=== PATIENT | female | born 1995 | race Caucasian/White ===

== ENCOUNTER 2019-07-07 12:22 | Day surgery (SDC) | payer OTHER, SELFPAY ==
[2019-07-07] VITALS (10 sets, daily range): BP systolic 90–131; BP diastolic 50–84; PULSE 52–115; RESP 12–18; TEMP 36.3–37.1; O2SAT 97–100
--- NOTE | ~2019-07-07 | CT_ITS ---
EXAMINATION: CT abdomen pelvis w con DATE: 07/07/2019 14:11 INDICATION: Right lower quadrant abdominal pain and cramping. TECHNIQUE: Computed tomography (CT) of the abdomen and pelvis was performed . with 100 mL Omnipaque-3 50 intravenous contrast. Automated exposure control and iterative reconstruction technique were emplo yed. The dose-length product was 260.97 mGy-cm. COMPARISON: None FINDINGS: Lung bases are clear. Heart size is normal. No pericardial or pleural effusion. Liver, gallbladder, s pleen, pancreas, bilateral adrenal glands and kidneys are normal. Obstructing calcified appendicolith at the base of the appendix which is fluid-filled and dilated to 1.6 cm with thickened edematous wal ls. There is mild periappendiceal inflammatory stranding. No abnormal bowel wall thickening or obstru ction. Ascites in the pelvis greater than typical for physiologic free fluid. No organized abscess or free intraperitoneal gas. Bladder, anteverted uterus and bilateral adnexa are unremarkable. No patho logically enlarged abdominal or pelvic lymphadenopathy. Bones are unremarkable. IMPRESSION: 1. Acute appendicitis. Dr. Alberts discussed these findings with Dr. Spann at 2:25 PM. 2. Greater than typical amount of free fluid in the pelvis which is likely reactive. No organized abs cess, evident defect in the appendiceal wall or intraperitoneal gas to suggest appendiceal rupture. Reviewed, dictated and finalized at location A. IMPRESSION: 1. Acute appendicitis. Dr. Alberts discussed these findings with Dr. Zana denton t 2:25 PM. 2. Greater than typical amount of free fluid in the pelvis which is likely reac tive. No organized abscess, evident defect in the appendiceal wall or intraperi toneal gas to suggest appendiceal rupture.
[2019-07-07 12:38] LABS: Basophils Absolute Auto 0.1 K/mm3 (0.0-0.1); Basophils Percent Auto 0.5 % (0.2-1.2); Eosinophils Absolute Auto 0.1 K/mm3 (0-0.3); Eosinophils Percent Auto 0.4 % (0-4.4); Hematocrit 38.2 % (37.0-47.0); Hemoglobin 12.8 g/dL (12.0-15.0); Immature Granulocyte Absolute 0.05 K/mm3 (0.00-0.031); Immature Granulocyte Percent A 0.4 % (0-0.5); Lymphocytes Absolute Auto 1.92 K/mm3 (0.9-3.2); Lymphocytes Percent Auto 13.6 % (18.3-44.2); Mean Corpuscular HGB Conc 33.5 g/dl (32-36); Mean Corpuscular Hemoglobin 29.8 pg (26-34); Mean Corpuscular Volume 88.8 fl (80-100); Mean Platelet Volume 10.7 fl (7.4-10.4); Monocytes Absolute Auto 0.6 K/mm3 (0.1-0.6); Monocytes Percent Auto 4.3 % (2.6-8.5); Neutrophils Absolute Auto 11.4 K/mm3 (1.3-6.7); Neutrophils Percent Auto 80.8 % (45.5-73.1); Platelet Count Result 290 k/mm3 (150-375); White Blood Count 14.1 K/mm3 (4.5-10.0)
[2019-07-07 12:51] LABS: Alanine Aminotransferase 11 U/L (4-35); Albumin Level 4.8 g/dL (3.5-5.1); Alkaline Phosphatase 66 U/L (38-126); Aspartate Amino Transferase 20 U/L (14-36); Bilirubin,Total 0.5 mg/dL (0.2-1.3); Blood Urea Nitrogen 10 mg/dL (7-17); Calcium 9.5 mg/dL (8.4-10.2); Carbon Dioxide 23 mmol/L (22-30); Chloride 106 mmol/L (98-107); Estimated CRCL calculation 82 ml/min; Estimated Glomerular Filt Rate > 60; Glucose 91 mg/dL (65-105); Lipase 30 U/L (23-300); Potassium 4.2 mmol/L (3.4-5.0); Sodium 137 mmol/L (137-145)
[2019-07-07] MEDS: MORPHINE SULFATE 4 MG/ML INJ IV PUSH (12:52)
[2019-07-07] MEDS: SODIUM CHLORIDE 0.9% IV 1,000 ML 999 ML IV CONT (12:53)
--- NOTE | 2019-07-07 13:26 | ED.ABDPAIN ---
HPI - Abdominal Pain General Chief Complaint: Abdominal Pain Stated Complaint: abdominal pain Time Seen by Provider: 07/07/19 12:34 History of Present Illness HPI narrative: Patient is a 23-year-old female who presents the ER with abdominal pain x3 days. Slowly progressing intensity. Began as cramping that she thought was related to her menstrual period that she is supposed to start in another 3 to 4 days. No fever/chills/sweats. She has been without any viral symptoms. No UTI symptoms. No affiliation with eating. Related Data Home Medications Medication Instructions Recorded Confirmed No Home Medications 07/07/19 07/07/19 Allergies Allergy/AdvReac Type Severity Reaction Status Date / Time peanut Allergy Difficulty Verified 07/07/19 12:31 Breathing Review of Systems Review of Systems: All systems reviewed & are unremarkable except as noted in HPI and below Constitutional: Constitutional: Denies chills, Denies fever(s) and Denies weakness ENT: Denies nasal congestion and Denies sore throat Respiratory: Respiratory: Denies cough and Denies dyspnea Gastrointestinal: Gastrointestinal: Reports abdominal pain, Denies diarrhea, Denies nausea and Denies vomiting Genitourinary: Genitourinary: Denies abnormal vaginal bleeding, Denies nocturia, Denies dysuria and Denies vaginal discharge PMF Past Medical History Medical History (Updated 07/07/19 @ 14:36 by Sanket Spann MD) No pertinent past medical history Surgical History Surgical History (Updated 07/07/19 @ 13:57 by Sanket Spann MD) No pertinent past surgical history Social History Social History (Updated 07/07/19 @ 13:58 by Sanket Spann MD) Smoking status: Never smoker Gender identity (if verbalized by the patient): Female Exam Narrative: Exam Narrative: GENERAL: Uncomfortable-appearing, well-nourished, and in no acute distress. HEAD: Normocephalic, atraumatic. ENT: Mucous membranes moist. CHEST: Clear to auscultation. No respiratory distress. HEART: Regular rate and rhythm. Normal peripheral pulses. ABDOMEN: Soft, moderately tender to palpation the right lower quadrant with guarding, positive Rovsing sign,, nondistended, normal active bowel sounds. EXTREMITIES: Normal range of motion. No edema. SKIN: Warm, dry, no rash. NEURO: N Alert and oriented x3. PSYCH: Normal mood and affect. Course Course Emergency Course: Discussed with Dr. Hargrove, pt will go to the OR. Zosyn given IV. Vital Signs Vital signs: Vital Signs Temperature 98.5 F 07/07/19 12:27 Pulse Rate 115 H 07/07/19 12:27 Respiratory Rate 18 07/07/19 12:27 Blood Pressure 131/76 07/07/19 12:27 Pulse Oximetry 100 07/07/19 12:27 Temperature 98.5 F 07/07/19 12:27 Pulse Rate 93 07/07/19 13:32 Respiratory Rate 16 07/07/19 13:32 Blood Pressure 117/62 07/07/19 13:32 Pulse Oximetry 100 07/07/19 13:32 MDM - Abdominal Pain Lab Data Result diagrams: 07/07/19 12:34 07/07/19 12:34 Labs: Lab Results 07/07/19 07/07/19 07/07/19 Range/Units 12:34 12:34 13:48 WBC 14.1 H (4.5-10.0) K/mm3 RBC 4.30 (4.2-5.4) M/mm3 Hgb 12.8 (12.0-15.0) g/dL Hct 38.2 (37.0-47.0) % MCV 88.8 (80-100) fl MCH 29.8 (26-34) pg MCHC 33.5 (32-36) g/dl RDW 12.0 (11.5-14.5) % Plt Count 290 (150-375) k/mm3 MPV 10.7 H (7.4-10.4) fl Immature Gran % (Auto) 0.4 (0-0.5) % Neut % (Auto) 80.8 H (45.5-73.1) % Lymph % (Auto) 13.6 L (18.3-44.2) % [place] % (Auto) 4.3 (2.6-8.5) % Eos % (Auto) 0.4 (0-4.4) % Baso % (Auto) 0.5 (0.2-1.2) % Lymph # (Auto) 1.92 (0.9-3.2) K/mm3 [place] # (Auto) 0.6 (0.1-0.6) K/mm3 Eos # (Auto) 0.1 (0-0.3) K/mm3 Baso # (Auto) 0.1 (0.0-0.1) K/mm3 Abs Immat Gran (auto) 0.05 H (0.00-0.031) K/mm3 Absolute Neuts (auto) 11.4 H (1.3-6.7) K/mm3 Absolute Nucleated RBC 0.0 (0.0-0.012) K/mm3 Nucleated RBC
[2019-07-07 13:58] LABS: Add Urine Microscopic? YES; Appearance Urine Clear (Clear); Bacteria Urine Trace /hpf; Bilirubin Urine Negative (Negative); Blood Urine Negative (Negative); Color Urine Straw (Yellow); Glucose Urine UA Negative (Negative); Ketones Urine 1+ mg/dL (Negative); Leukocyte Esterase Ur Negative LEU/UL (Negative); Mucus Urine Rare /lpf; Nitrate Urine Negative (Negative); Protein Urine Negative (Negative); Specific Grav Ur 1.013 (1.001-1.035); Squamous Epithelial Cell Urine Many /hpf (Few); Urobilinogen Urine Negative mg/dL (<2.0)
--- NOTE | 2019-07-07 15:13 | PM.IMHP ---
H&P: HPI History of Present Illness Chief complaint: abdominal pain Narrative: Lucia Ruelas is a 23 year old female patient who presented today the ER with abdominal pain x3 days. Slowly progressing in intensity. It began as cramping that she thought was related to her menstrual period that she is supposed to start in another 3 to 4 days. She has no current period symptoms nor any current UTI symptoms. No fever/chills/sweats. She has been without any viral symptoms. No UTI symptoms. No affiliation with eating. She last had something to eat last evening. She has had only water today. She has never had any previous abdominal surgery. Review of Systems Constitutional: Constitutional: Reports as per HPI and Denies headache(s) Eyes: Eyes: Denies loss of vision and Denies eye pain ENT: Reports Normal hearing present, Denies change in voice, Denies dizziness and Denies headache(s) Comments: Previous history of tonsillectomy as a child. Also has had dental surgery with wisdom teeth removed. Cardiovascular: Cardiovascular: Denies chest pain and Denies dyspnea Respiratory: Respiratory: Denies dyspnea and Denies wheezing Gastrointestinal: Gastrointestinal: Reports abdominal pain, Reports GI cramping, Denies diarrhea and Reports nausea (Mild) Comments: No previous history of abdominal gastrointestinal problems. Musculoskeletal: Musculoskeletal: Denies back pain and Denies arthralgias Neurologic: Reports Normal hearing present, Denies dizziness, Denies headache(s), Denies loss of vision and Denies memory loss Psychiatric: Psychiatric: Denies memory loss and Denies panic attacks Endocrine: Endocrine: Reports no additional endocrine complaints Hematologic/Lymphatic: Hematologic/Lymphatic: Reports no additional hematologic/lymphatic complaints Allergic/Immunologic: Allergic/Immunologic: Denies wheezing PMFSH Past Medical History Medical History (Updated 07/07/19 @ 14:36 by Sanket Spann MD) No pertinent past medical history Surgical History Surgical History (Updated 07/07/19 @ 13:57 by Sanket Spann MD) No pertinent past surgical history Social History Social History (Updated 07/07/19 @ 13:58 by Sanket Spann MD) Smoking status: Never smoker Gender identity (if verbalized by the patient): Female Meds Home Medications and Allergies Home Medications Medication Instructions Recorded Confirmed Type No Home Medications 07/07/19 07/07/19 History Allergies Allergy/AdvReac Type Severity Reaction Status Date / Time peanut Allergy Difficulty Verified 07/07/19 12:31 Breathing Vital Signs Vital Signs - 24 hr 07/07/19 12:27 07/07/19 13:32 Temperature 36.9 C Pulse Rate 115 H 93 Respiratory Rate 18 16 Blood Pressure 131/76 117/62 Pulse Oximetry 100 100 Exam Const: General: cooperative, no acute distress, alert and awake Orientation/consciousness: patient oriented x3 HENMT: Mouth: Yes moist mucous membranes Other: Has some ear rings. Neck: Neck: normal visual inspection Chest: Chest palpation & inspection: normal inspection of the chest Resp: Effort & Inspection: normal respiratory effort Auscultation: clear to auscultation bilaterally Cardio: Jugular venous distension: no JVD Rate: regular rate Rhythm: regular rhythm GI: Inspection: normal to inspection and no scars GI Palp: Yes Tenderness to palpation present (GI) (More in the right lower quadrant than left) and No Hernia present Auscultation: normal bowel sounds Rectal Exam: deferred Neuro: General: patient oriented x3 and moves all extremities Speech: normal speech Extrem: General: normal exam except as noted Psych: Mental Status: mental status grossly normal Speech and movement: Normal speech and movement present Affect: normal affect Thought content: Yes Normal thought content present H&P: Results Labs Labs: Short CBC 07/07/19 Range/Units 12:34 WBC 14.1 H (4.5-10.0) K/mm3
--- NOTE | 2019-07-07 15:22 | WPDANESEPPF ---
Anes - Initial Pre Proc Eval Procedure: Operation Date: 07/07/19 15:00 Proposed Procedures p Laparoscopic Appendectomy - Billy Hargrove MD Date/Time: 07/07/19 15:22 Surgeon: Billy Hargrove MD Pre Op Diagnosis: abdominal pain Patient Data Age: 23 Gender: F Height: 5 ft 4 in Weight: 60 kg Last Vital Signs Temp 36.9 C 07/07/19 12:27 Pulse 96 07/07/19 15:15 Resp 18 07/07/19 15:15 BP 118/84 07/07/19 15:15 Pulse Ox 99 07/07/19 15:15 Allergies Allergy/AdvReac Type Severity Reaction Status Date / Time peanut Allergy Difficulty Verified 07/07/19 12:31 Breathing Home Medications Medication Instructions Recorded Confirmed Type No Home Medications 07/07/19 07/07/19 History Laboratory Tests 07/07/19 07/07/19 07/07/19 12:34 12:34 13:48 WBC 14.1 K/mm3 H K/mm3 (4.5-10.0) RBC 4.30 M/mm3 M/mm3 (4.2-5.4) Hgb 12.8 g/dL g/dL (12.0-15.0) Hct 38.2 % % (37.0-47.0) MCV 88.8 fl fl (80-100) MCH 29.8 pg pg (26-34) MCHC 33.5 g/dl g/dl (32-36) RDW 12.0 % % (11.5-14.5) Plt Count 290 k/mm3 k/mm3 (150-375) MPV 10.7 fl H fl (7.4-10.4) Immature Gran % (Auto) 0.4 % % (0-0.5) Neut % (Auto) 80.8 % H % (45.5-73.1) Lymph % (Auto) 13.6 % L % (18.3-44.2) [place] % (Auto) 4.3 % % (2.6-8.5) Eos % (Auto) 0.4 % % (0-4.4) Baso % (Auto) 0.5 % % (0.2-1.2) Lymph # (Auto) 1.92 K/mm3 K/mm3 (0.9-3.2) [place] # (Auto) 0.6 K/mm3 K/mm3 (0.1-0.6) Eos # (Auto) 0.1 K/mm3 K/mm3 (0-0.3) Baso # (Auto) 0.1 K/mm3 K/mm3 (0.0-0.1) Abs Immat Gran (auto) 0.05 K/mm3 H K/mm3 (0.00-0.031) Absolute Neuts (auto) 11.4 K/mm3 H K/mm3 (1.3-6.7) Absolute Nucleated RBC 0.0 K/mm3 K/mm3 (0.0-0.012) Nucleated RBC % 0.0 % % (0.0-0.2) Sodium 137 mmol/L mmol/L (137-145) Potassium 4.2 mmol/L mmol/L (3.4-5.0) Chloride 106 mmol/L mmol/L (98-107) Carbon Dioxide 23 mmol/L mmol/L (22-30) BUN 10 mg/dL mg/dL (7-17) Creatinine 0.80 mg/dL mg/dL (0.7-1.0) Estim Creat Clear Calc 82 ml/min ml/min Estimated GFR > 60 (59 - ) Glucose 91 mg/dL mg/dL (65-105) Calcium 9.5 mg/dL mg/dL (8.4-10.2) Total Bilirubin 0.5 mg/dL mg/dL (0.2-1.3) AST 20 U/L U/L (14-36) ALT 11 U/L U/L (4-35) Alkaline Phosphatase 66 U/L U/L (38-126) Total Protein 8.0 g/dL g/dL (6.3-8.2) Albumin 4.8 g/dL g/dL (3.5-5.1) Lipase 30 U/L U/L (23-300) Urine Color Straw (Yellow) Urine Appearance Clear (Clear) Urine pH 6.0 (5.0-9.0) Ur Specific [place] 1.013 (1.001-1.035) Urine Protein Negative mg/dL mg/dL (Negative) Urine Glucose (UA) Negative mg/dL mg/dL (Negative) Urine Ketones 1+ mg/dL H mg/dL (Negative) Ur Blood (Man) Negative (Negative) Urine Nitrate Negative (Negative) Urine Bilirubin Negative (Negative) Urine Urobilinogen Negative mg/dL mg/dL (<2.0) Leukocyte Esterase Rfl Negative TONY/UL TONY/UL (Negative) Urine RBC 3-5 /hpf H /hpf (0-2) Urine WBC 4-6 /hpf H /hpf Ur Squamous Epith Cells Many /hpf H /hpf (Few) Urine Bacteria Trace /hpf /hpf Urine Mucus Rare /lpf /lpf Patient hx anesthesia problems: none Family hx anesthesia problems: none PMFSH Past Medical History Medical History No pertinent past medical history Surgical History Surgical History No pertinent past surgical history Social History
[2019-07-07] MEDS: LACTATED RINGERS 1,000 ML 30 ML IV CONT ×2 (15:25→16:35)
[2019-07-07] MEDS: BUPIVACAINE/EPINEPHRINE 0.5% 30 ML VIAL INFILTRATE (16:00)
--- NOTE | 2019-07-07 16:26 | PM.PROC ---
Procedure Note - Detailed Date of procedure: 07/07/19 Pre-op diagnosis: abdominal pain Acute uncomplicated appendicitis Post-op diagnosis: other (Acute uncomplicated appendicitis 2. enlarged left ovarian cyst) Procedure performed: Laparoscopic Appendectomy Description of procedure: The patient was seen again in the Emergency Room. The risks, benefits, complications, treatment options, and expected outcomes were discussed with the patient and/or family. The possibilities of reaction to medication, pulmonary aspiration, perforation of viscus, bleeding, recurrent infection, finding a normal appendix, the need for additional procedures, failure to diagnose a condition, and creating a complication requiring transfusion or operation were discussed. There was concurrence with the proposed plan and informed consent was obtained. The site of surgery was properly noted/marked. The patient was taken to Operating Room, and a time out was preformed which identified this as the proper patient, and the procedure verified as laparoscopic appendectomy, possible open. The patient was placed in the supine position and general anesthesia was induced, along with placement of orogastric tube, SCD hose, and a Mckenzie catheter. The abdomen was prepped and draped in a sterile fashion. A 5 mm umbilical incision was made and the peritoneal cavity was accessed using the Veress needle technique. Once the abdomen was insufflated to 14 mmHg pressure a 5 mm XL trocar over the 0? 5 mm scope was carefully twisted into the abdomen via the umbilicus. The pneumoperitoneum was then established to steady pressure of 14 mm Hg. A 12 mm laparoscopic port was placed through a transverse suprapubic incision. An additional 5 mm cannula was then placed in the left lower quadrant of the abdomen at a level half way between the umbilicus and pubic symphysis under direct vision. A careful evaluation of the entire abdomen was carried out. As noted on the CT scan there was some clear fluid in the pelvis and about 100 cc of serous fluid was aspirated away with a suction word processing specialist at this point. Upon doing this it appeared the bluish cyst was present. Further investigation revealed that this was the approximately 6 cm round ovarian cyst coming off the left ovary. 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 The patient was placed in Trendelenburg and left lateral decubitus position. The small intestines were retracted in the cephalad and left lateral direction away from the pelvis and right lower quadrant. The patient was found to have an enlarged and inflamed appendix that was extending [into the right side of the pelvis. There was no evidence of perforation. The appendix was carefully dissected. Once it was free a 45 mm ethicon endogastroentestinal stapler with a vascular load was placed across the mesoappendix. This was fired and hemostasis was checked along the staple line and appeared to be adequate. I did touch the staple line with a [place] connected to Bovie cautery a couple of times to achieve good hemostasis. For this patient, this divided the entire mesoappendix and we were able to proceed immediately to stapling off the appendix at it's junction with the cecum. The appendix was then divided at its base using the same 45 mm stapler with a 3.5 mm bowel wall load. Minimal appendiceal stump was left in place. There was no evidence of bleeding, leakage, or complication after division of the appendix at its junction with the cecum.. The appendix was then placed in an endobag which had been brought through the 12 mm suprapubic port site. The appendix and the bag were then extracted through this larger port site in the suprapubic position. The suprapubic port site was closed using an 0 Polysorb suture passed with a standard needle johnson externally through the an incision at the level of the fascia. The trocar site skin wounds were closed using 4-0 undyed Monocryl an
--- NOTE | 2019-07-07 16:55 | SUR.PHASEI ---
[id number] - dr. cardoza at bedside talking with patient
== END 2019-07-07 17:54 | disposition home or self-care (01) ==
LOC: ANHED 14:54 → ANHSURGERY 14:56
PROVIDERS: Emergency Provider Emergency Medicine; Visit Provider Surgery
PROC: 0DTJ4ZZ Resection of Appendix, Percutaneous Endoscopic Approach (ICD-10-PCS; CPT 44970; principal; 2019-07-07 15:00)
DX: K35.30 Acute appendicitis with localized peritonitis, without perforation or gangrene (principal); N83.202 Unspecified ovarian cyst, left side
CPT/HCPCS: 44970; 36415; 74177; 80053; 81001; 81025; 83690; 85025; 88304; 96361; 96365; 96375; 99285; A9270; J0330; J2250; J2270; J2405; J2543; J2704; J2710; J3010; J7030; J7120; Q9967

== ENCOUNTER → 2019-09-28 14:11 | Outpatient (CLI) | payer OTHER, SELFPAY ==
--- NOTE | ~2019-09-28 | US_ITS ---
EXAMINATION: US pelvic complete DATE: 09/28/2019 15:05 INDICATION: Ovarian cyst. TECHNIQUE: Multiple transabdominal sonographic images of the pelvis were obtained. COMPARISON: CT abdomen and pelvis 07/07/2019 FINDINGS: The uterus measures 9.5 x 3.4 x 6.3 cm. There is no free fluid in the pelvis. The endometrial complex measures 6 mm in thickness. The right ovary measures 6.1 x 3.9 x 6.8 cm. There is a 5.8 cm cystic ma ss with peripheral 8 mm hyperechoic component that is likely calcification without internal vascular flow in right ovary. The left ovary measures 4.5 x 2.4 x 3.8 cm. There is a 3.0 cm cyst with low leve l echoes in left ovary, likely a hemorrhagic cyst. There is normal vascular flow in the ovaries. IMPRESSION: 1. 5.8 cm cystic mass in right ovary, likely benign. Pelvis ultrasound is recommended in one year. 2. 3.0 cm hemorrhagic cyst in left ovary. Reviewed, dictated and finalized at location A. IMPRESSION: 1. 5.8 cm cystic mass in right ovary, likely benign. Pelvis ultrasound is recom mended in one year. 2. 3.0 cm hemorrhagic cyst in left ovary.
== END ==
PROVIDERS: Visit Provider Nurse Practitioner
DX: N83.202 Unspecified ovarian cyst, left side (principal)
CPT/HCPCS: 76856

== ENCOUNTER 2019-11-14 09:27 | Outpatient (CLI) | payer OTHER, SELFPAY ==
--- NOTE | ~2019-11-14 | US_ITS ---
EXAMINATION: US pelvic complete w TV DATE: 11/14/2019 10:37 INDICATION: Ovarian cysts TECHNIQUE: Multiple transabdominal and endovaginal sonographic images of the pelvis were obtained. COMPARISON: None. FINDINGS: The uterus measures 6.0 x 4.0 x 5.0 cm. The endometrial complex measures 4 mm. The right ov rafael measures 1.3 x 1.4 x 1.2 cm. There is a 7.0 x 4.5 x 6.3 cm cystic lesion of the right adnexa whic h is again seen to contain a peripheral 9 mm hyperechoic component with no associated vascularity, li tigre calcification. The left ovary measures 3.1 x 2.2 x 2.2 cm and contains a 2.4 cm cyst. There is n ormal vascular flow in the ovaries. There is no free fluid in the pelvis. IMPRESSION: 1. Likely benign cystic lesion of the right ovary. Follow-up pelvic ultrasound in one year is recomme nded. Reviewed, dictated and finalized at location A. IMPRESSION: 1. Likely benign cystic lesion of the right ovary. Follow-up pelvic ultrasound in one year is recommended.
== END 2019-11-14 09:28 | disposition home or self-care (01) ==
PROVIDERS: Visit Provider Obstetrics & Gynecology Gynecology
DX: N83.201 Unspecified ovarian cyst, right side (principal); N83.202 Unspecified ovarian cyst, left side
CPT/HCPCS: 76830; 76856

== ENCOUNTER → 2020-02-14 08:14 | Outpatient (CLI) | payer OTHER, SELFPAY ==
--- NOTE | ~2020-02-14 | US_ITS ---
EXAMINATION: US transvaginal EXAM DATE: 02/14/2020 09:04 INDICATION: Unspecified ovarian cyst, right side follow up . TECHNIQUE: Pelvic transvaginal sonogram was performed. There are multiple grayscale and Doppler imag es available for interpretation. Comparison is made to prior examination from 11/14/2019. FINDINGS: Uterus measures 7.1 x 4.1 x 4.6 cm, and is morphologically normal. Endometrial stripe candida sures 5 mm, within normal limits. There is no free pelvic fluid. Right adnexa: The ovary measures 3.4 x 1.4 x 2.0 cm and is morphologically normal. Ovarian vascular f low confirmed. Left adnexa: The ovary measures 4.5 x 3.0 x 4.0 cm, with a 3 cm cyst likely dominant follicle. Ovaria n vascular flow confirmed. In the pelvis there is a cystic region measuring 5.3 x 4.0 x 7.0 cm, located in the midline, with sma ll hyperechoic nodule along its wall, likely the region demonstrating faint calcification on CT. This appears to be contiguous to the left ovary on today's exam, is likely same cystic region described o n prior ultrasound as being associated with the right ovary. Differential diagnosis includes periadne xal cyst, endometrioma, dermoid, cystic ovarian neoplasm. IMPRESSION: Persistent complex cystic lesion posterior to uterus, most likely ovarian origin. Differe ntial diagnosis includes periadnexal cyst, endometrioma, dermoid, cystic ovarian neoplasm. Would favo r benign histology given stability. Follow-up ultrasound or histologic correlation. Reviewed, dictated and finalized at location A. 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 Differential diagnosis includes periadnexal cyst, endometrioma, dermoid, cystic ovarian neoplasm. Would favor benign histology given stability. Follow-up ultrasound or histologic correlation.
== END ==
PROVIDERS: Visit Provider Obstetrics & Gynecology Gynecology
DX: N83.201 Unspecified ovarian cyst, right side (principal)
CPT/HCPCS: 76830

== ENCOUNTER → 2020-09-25 14:11 | Outpatient (CLI) | payer OTHER, SELFPAY ==
--- NOTE | ~2020-09-25 | US_ITS ---
EXAMINATION: US pelvic complete EXAM DATE: 09/25/2020 14:35 INDICATION: Right ovarian cyst. TECHNIQUE: Pelvic transabdominal sonogram was performed. There are multiple grayscale and Doppler im ages available for interpretation. Comparison is made to prior examination from 02/14/2020. FINDINGS: Uterus measures 9.0 x 3.8 x 4.6 cm, and is morphologically normal. Endometrial stripe candida sures 4 mm, within normal limits. There is no free pelvic fluid. Right adnexa: The ovary measures 2.6 x 2.0 x 2.0 cm and is morphologically normal. Ovarian vascular f low confirmed. Left adnexa: The ovary measures 4.0 x 2.6 x 4.4 cm, and is morphologically normal. Ovarian vascular f low confirmed. There is persistent cystic region identified posterior to the uterus, contiguous to the left ovary, m easuring 6.5 x 4.3 x 6.0 cm (not appreciably changed). Appears most likely simple cystic, no evidence of focal wall thickening. Differential diagnosis includes periadnexal cyst, endometrioma, dermoid, c ystic ovarian neoplasm. IMPRESSION: Persistent complex cystic lesion posterior to uterus. Differential diagnosis includes per iadnexal cyst, endometrioma, dermoid, cystic ovarian neoplasm. Would favor benign histology given sta bility. Follow-up 6-12 month ultrasound or histologic correlation. Reviewed, dictated and finalized at location A. IMPRESSION: Persistent complex cystic lesion posterior to uterus. Differential diagnosis includes periadnexal cyst, endometrioma, dermoid, cystic ovarian neop lasm. Would favor benign histology given stability. Follow-up 6-12 month ultras ound or histologic correlation.
== END ==
PROVIDERS: Visit Provider Nurse Practitioner
DX: N83.201 Unspecified ovarian cyst, right side (principal)
CPT/HCPCS: 76856

== ENCOUNTER → 2021-10-31 11:19 | Outpatient (CLI) | payer OTHER, SELFPAY ==
--- NOTE | ~2021-10-31 | US_ITS ---
EXAMINATION: US pelvic complete DATE: 10/31/2021 11:58 INDICATION: Right ovarian cyst follow-up Comparison: Comparison to multiple prior studies sequentially, with oldest reviewed study dated 11/13. TECHNIQUE: Multiple transabdominal and endovaginal sonographic images of the pelvis performed. FINDINGS: The uterus measures 7.7 x 4 x 5 cm. The endometrial complex measures 9 mm. The right ovary measures 2.1 x 2.7 x 2.4 cm and the left ovary measures 6 x 4.6 x 6.4 cm. There is a persistent complicated cyst with low-level internal echoes involving the cul-de-sac 5.3 x 3.8 x 5.2 c m. This cyst has diminished in size compared with prior examinations allowing for differences of tech nique. There are small follicles in each ovary. Normal doppler signal in both ovaries. There is no free fluid in the pelvis. There are no abnormal masses seen on either side. IMPRESSION: 1. Diminishing size of cystic mass midline posterior to the uterus. Differential diagnosis includes p eriadnexal cyst, endometrioma, cystadenoma. Cystadenocarcinoma is much less likely given the patient' s age and diminishing size. Reviewed, dictated and finalized at location B. IMPRESSION: 1. Diminishing size of cystic mass midline posterior to the uterus. Differentia l diagnosis includes periadnexal cyst, endometrioma, cystadenoma. Cystadenocarc inoma is much less likely given the patient's age and diminishing size.
== END ==
PROVIDERS: PCP Nurse Practitioner; Visit Provider Nurse Practitioner
DX: N83.201 Unspecified ovarian cyst, right side (principal)
CPT/HCPCS: 76856

== ENCOUNTER → 2022-03-03 10:46 | Outpatient (CLI) | payer OTHER, SELFPAY ==
--- NOTE | ~2022-03-03 | US_ITS ---
Pelvic ultrasound. Clinical History: First trimester , evaluate for viability Technique: Realtime transabdominal and transvaginal scanning of the pelvis was performed. Color flow Doppler and Doppler spectral analysis were performed. Findings: The uterus is anteverted, and contains an intrauterine gestation. Minor Hill-rump length of 1.9 cm corresponds to an estimated gestational age of 8 weeks 3 days. heart rate is 176 bpm. Probab le minimal subchorionic hemorrhage. The right ovary measures 1.8 x 1.3 x 2.0 cm. No significant right ovarian or adnexal mass is seen. The left ovary measures 5.1 x 4.5 x 5.1 cm. Simple left ovarian cyst measures 4.1 cm in diameter. The re is an additional 6.5 x 4.5 x 7.3 cm simple cystic left adnexal/left ovarian mass. There is an bradley tional 5.0 x 4.0 x 5.4 cm simple cystic left ovarian/adnexal mass. There is no evidence of free fluid in the cul de sac. Impression: Live intrauterine gestation with estimated gestational age of 8 weeks 3 days. heart rate is 176 bpm. Minimal subchorionic hemorrhage. Multiple simple appearing cystic lesions in the left adnexa/left ovary, largest measuring 7.3 cm in s ize. Smaller cysts measure 5.4 and 4.1 cm in diameter respectively. Reviewed, dictated and finalized at location [] ARYNGOLOGY SURGEON Impression: Live intrauterine gestation with estimated gestational age of 8 weeks 3 days. F etal heart rate is 176 bpm. Minimal subchorionic hemorrhage. Multiple simple appearing cystic lesions in the left adnexa/left ovary, largest measuring 7.3 cm in size. Smaller cysts measure 5.4 and 4.1 cm in diameter res pectively.
== END ==
PROVIDERS: PCP Advanced Practice Midwife; Visit Provider Advanced Practice Midwife
DX: O36.80X0 Pregnancy with inconclusive fetal viability, not applicable or unspecified (principal); Z3A.08 8 weeks gestation of pregnancy
CPT/HCPCS: 76801

== ENCOUNTER → 2022-04-03 08:11 | Outpatient (CLI) | payer OTHER, SELFPAY ==
--- NOTE | ~2022-04-03 | US_ITS ---
Pelvic ultrasound. Clinical History: First trimester , subchorionic hemorrhage COMPARISON: 03/03/2022 Technique: Realtime transabdominal and transvaginal scanning of the pelvis was performed. Color flow Doppler and Doppler spectral analysis were performed. Findings: The uterus is anteverted, and contains an intrauterine gestation. heart rate is 154 b pm. Small subchorionic hemorrhage present. The right ovary is not visualized. No significant right ovarian or adnexal mass is seen. The left ovary measures 3.8 x 2.4 x 3.8 cm. There is a 9.9 x 4.3 x 7.0 cm simple cystic mass in the l eft adnexal region.. There is no evidence of free fluid in the cul de sac. Impression: Small subchorionic hemorrhage present, similar to prior exam. Live intrauterine gestation with heart rate of 154 bpm. Large simple cystic mass in the left adnexal region measuring up to 9.9 cm in diameter. Reviewed, dictated and finalized at location . LER BODY ASSEMBLER Impression: Small subchorionic hemorrhage present, similar to prior exam. Live intrauterine gestation with heart rate of 154 bpm. Large simple cystic mass in the left adnexal region measuring up to 9.9 cm in d iameter.
== END ==
PROVIDERS: PCP Obstetrics & Gynecology Gynecology; Visit Provider Obstetrics & Gynecology Gynecology
DX: O36.8910 Maternal care for other specified fetal problems, first trimester, not applicable or unspecified (principal); O34.81 Maternal care for other abnormalities of pelvic organs, first trimester; N94.89 Other specified conditions associated with female genital organs and menstrual cycle; Z3A.00 Weeks of gestation of pregnancy not specified
CPT/HCPCS: 76815

== ENCOUNTER → 2022-05-14 15:29 | Outpatient (CLI) | payer OTHER, SELFPAY ==
--- NOTE | ~2022-05-14 | US_ITS ---
EXAMINATION: US OB /maternal detail DATE: 05/14/2022 16:07 INDICATION: Encounter for screening. Left ovarian cyst. TECHNIQUE: Real-time ultrasound of the pelvis was performed. COMPARISON: Ultrasound 04/03/2022, 09/28/19, 09/25/20, CT abdomen and pelvis 07/07/19 FINDINGS: There is a single living fetus in variable presentation. The placenta is anterior, 2.5 cm from the c ervix. The cervical length is 3.5 cm on transabdominal images, which is normal. heart rate is 1 34 beats per minute (bpm). The amniotic fluid volume is subjectively normal. There is a 7.8 cm cyst i n left ovary with peripheral low-level echoes. The following biometric data were obtained: Biparietal diameter (BPD): 4.3 cm; head circumference (HC): 15.8 cm; abdominal circumference (AC): 13 .4 cm; femur length (FL): 2.8 cm. These measurements are concordant. Estimated weight is 252 g +/- 38 g, which correlates with the 43rd percentile when 10/10/22 is u sed as estimated date of delivery. As single measurements, these parameters are each equal to the following estimated gestational ages: BPD: 19 weeks 0 days. HC: 18 weeks 5 days. AC: 18 weeks 6 days. FL: 18 weeks 3 days. estimated gestational age based solely on measurements from this exam is 18 weeks 5 days +/- 1 weeks 2 days. The cerebral ventricles, cerebellum, cisterna magna, nuchal fold, lip, and visualized portions of the spine are normal. The heart is normal. The diaphragm, stomach, kidneys, and bladder are normal. Ther e are two umbilical arteries to yield a 3-vessel cord. The cord insertion is normal. IMPRESSION: 1. Single living fetus in variable presentation. 2. Estimated weight is 252 g +/- 38 g, which correlates with the 43rd percentile when 10/10/22 is used as estimated date of delivery. 3. Normal anatomic survey. 4. 7.8 cm cystic mass of left ovary, stable from 07/07/19, probably benign. Reviewed, dictated and finalized at location A. MBLER UNIT IMPRESSION: 1. Single living fetus in variable presentation. 2. Estimated weight is 252 g +/- 38 g, which correlates with the 43rd pe rcentile when 10/10/22 is used as estimated date of delivery. 3. Normal anatomic survey. 4. 7.8 cm cystic mass of left ovary, stable from 07/07/19, probably benign.
== END ==
PROVIDERS: PCP Advanced Practice Midwife; Visit Provider Advanced Practice Midwife
DX: O99.891 Other specified diseases and conditions complicating pregnancy (principal); N83.202 Unspecified ovarian cyst, left side; Z36.9 Encounter for antenatal screening, unspecified
CPT/HCPCS: 76805

== ENCOUNTER → 2022-09-10 14:43 | Outpatient (CLI) | payer OTHER, SELFPAY ==
--- NOTE | ~2022-09-10 | US_ITS ---
EXAMINATION: US OB follow up DATE: 09/10/2022 15:10 INDICATION: Size greater than dates during third trimester TECHNIQUE: Real-time ultrasound of the pelvis was performed. The interpreting radiologist was not pre sent for the study. COMPARISON: None. FINDINGS: There is a single living fetus in vertex presentation. The placenta is anterior and 11 cm f rom the internal cervical os. The cervical length is 3.5 cm. cardiac activity and movemen t are noted. heart rate is 140 beats per minute (bpm). The amniotic fluid index is 21.1 cm whic h is normal (normal range: 7.9 cm to 24.9 cm). The following biometric data were obtained: Biparietal diameter (BPD): 8.4 cm; head circumference (HC): 31.9 cm; abdominal circumference (AC): 30 .2 cm; femur length (FL): 6.7 cm. These measurements are concordant. Estimated weight is 2411 g +/- 361 g, which correlates with the 17th percentile when 10/10/2022 is used as estimated date of delivery. As single measurements, these parameters are each equal to the following estimated gestational ages w ith ranges of +/- 2 standard deviations: BPD: 33 weeks 5 days ( 30 weeks 5 days - 36 weeks 6 days). HC: 36 weeks 0 days ( 33 weeks 0 days - 39 weeks 0 days). AC: 34 weeks 1 days ( 31 weeks 1 days - 37 weeks 1 days). FL: 34 weeks 3 days ( 31 weeks 3 days - 37 weeks 3 days). estimated gestational age based solely on measurements from this exam is 34 weeks 4 days +/- 2 weeks 3 days. IMPRESSION: 1. Single living fetus in vertex presentation. 2. Normal amniotic fluid index. 3. Estimated weight is 2411 g +/- 361 g, which correlates with the 17th percentile when 10/11/19 23 is used as estimated date of delivery. Reviewed, dictated and finalized at location [] IMPRESSION: 1. Single living fetus in vertex presentation. 2. Normal amniotic fluid index. 3. Estimated weight is 2411 g +/- 361 g, which correlates with the 17th p ercentile when 10/10/2022 is used as estimated date of delivery.
== END ==
PROVIDERS: PCP Obstetrics & Gynecology Gynecology; Visit Provider Obstetrics & Gynecology Gynecology
DX: O36.5930 Maternal care for other known or suspected poor fetal growth, third trimester, not applicable or unspecified (principal)
CPT/HCPCS: 76816

== ENCOUNTER 2022-10-02 04:54 | Inpatient (IN) | payer OTHER, SELFPAY ==
[2022-10-02] VITALS (222 sets, daily range): BP systolic 75–178; BP diastolic 40–151; PULSE 43–156; RESP 18; TEMP 36.1–37.6; O2SAT 82–100; BMI 28.8
--- NOTE | 2022-10-02 05:16 | LDADM ---
This patient, Lucia Ortega, was admitted to Labor/Delivery/Recovery 103 on 10/02/22 at 04:54. Plans for labor, pain management and were discussed with patient. Patient/family oriented to hospital policies and general routines including ID bracelet, bed and alarms, visiting hours, pain management, procedures, bathroom and other care routines, personal items, smoking policy, room service/diet and guest tray routines, infant security routines, and visiting hours. Patient/Family are encouraged to report perceived risks to care and to ask questions if they do not understand what they are told or what they should do. See OBIX for further documentation.
[2022-10-02 05:52] LABS: Basophils Absolute Auto 0.1 K/mm3 (0.0-0.1); Basophils Percent Auto 0.4 % (0.2-1.2); Eosinophils Absolute Auto 0.1 K/mm3 (0-0.3); Eosinophils Percent Auto 1.1 % (0-4.4); Hematocrit 32.3 % (37.0-47.0); Hemoglobin 10.9 g/dL (12.0-15.0); Immature Granulocyte Absolute 0.24 K/mm3 (0.00-0.031); Lymphocytes Absolute Auto 2.36 K/mm3 (0.9-3.2); Lymphocytes Percent Auto 20.2 % (18.3-44.2); Mean Corpuscular HGB Conc 33.7 g/dl (32-36); Mean Corpuscular Hemoglobin 30.4 pg (26-34); Mean Corpuscular Volume 90.2 fl (80-100); Mean Platelet Volume 11.6 fl (7.4-10.4); Monocytes Absolute Auto 0.6 K/mm3 (0.1-0.6); Monocytes Percent Auto 5.1 % (2.6-8.5); Neutrophils Absolute Auto 8.3 K/mm3 (1.3-6.7); Neutrophils Percent Auto 71.2 % (45.5-73.1); Platelet Count Result 179 k/mm3 (150-375); Red Blood Count 3.58 M/mm3 (4.2-5.4); White Blood Count 11.7 K/mm3 (4.5-10.0)
[2022-10-02] MEDS: OXYTOCIN 30 UNITS/NS 500 ML 30 UNITS/500 ML BAG 6 UNITS IV CONT (05:53)
[2022-10-02] MEDS: LACTATED RINGERS 1,000 ML 125 ML IV CONT ×2 (05:54→12:57)
[2022-10-02] MEDS: AMPICILLIN 2 GM/NS 100 ML 2 GM/100 ML BAG IVPB (05:55)
--- NOTE | 2022-10-02 07:51 | WPDOBADMIT ---
Obstetrics - Admit Note Admission Note: record reviewed. No pertinent additions to the history and/or any subsequent changes in the physical findings that are not consistent with the expected course of the were found. Additions to the history and/or subsequent changes in the physical findings follow. None.Here for MIL at 39 wks. Cervix 2-3/70/-2 posterior. AROM with clear fluid. FHTs reactive. Pitocin per protocol
[2022-10-02] MEDS: AMPICILLIN 1 GM/NS 50 ML 1 GM/50 ML BAG IVPB ×3 (10:04→18:18)
[2022-10-02 10:54] LABS: Rapid Plasma Reagin Non-Reactive (NonReactive)
[2022-10-02] MEDS: ONDANSETRON INJ 4 MG/2 ML VIAL IV PUSH (11:11)
--- NOTE | 2022-10-02 12:25 | WPDANESEPPF ---
Anes - Initial Pre Proc Eval Date/Time: 10/02/22 12:25 Surgeon: Alysa Vargas MD Pre Op Diagnosis: Induction of Labor Patient Data Age: 27 Gender: F Height: 1.65 m Weight: 78.6 kg Last Vital Signs Temp 37.0 C 10/02/22 12:18 Pulse 79 10/02/22 12:15 BP 104/79 10/02/22 12:15 Pulse Ox 100 10/02/22 12:22 Allergies Allergy/AdvReac Type Severity Reaction Status Date / Time peanut Allergy Difficulty Verified 09/12/22 13:34 Breathing Home Medications Medication Instructions Recorded Confirmed Type cholecalciferol (vitamin D3) 1,250 1,250 mcg PO WEEKLY 09/12/22 09/12/22 History mcg (50,000 unit) tablet ferrous sulfate 325 mg (65 mg 325 mg PO DAILY 09/12/22 09/12/22 History iron) tablet prenat.vits,елена,rse-jyop-lmjfm 1 tablet 09/12/22 History Laboratory Tests 10/02/22 05:38 WBC 11.7 H K/mm3 (4.5-10.0) RBC 3.58 L M/mm3 (4.2-5.4) Hgb 10.9 L g/dL (12.0-15.0) Hct 32.3 L % (37.0-47.0) MCV 90.2 fl (80-100) MCH 30.4 pg (26-34) MCHC 33.7 g/dl (32-36) RDW 13.0 % (11.5-14.5) Plt Count 179 k/mm3 (150-375) MPV 11.6 H fl (7.4-10.4) Immature Gran % (Auto) 2.0 H % (0-0.5) Neut % (Auto) 71.2 % (45.5-73.1) Lymph % (Auto) 20.2 % (18.3-44.2) [place] % (Auto) 5.1 % (2.6-8.5) Eos % (Auto) 1.1 % (0-4.4) Baso % (Auto) 0.4 % (0.2-1.2) Lymph # (Auto) 2.36 K/mm3 (0.9-3.2) [place] # (Auto) 0.6 K/mm3 (0.1-0.6) Eos # (Auto) 0.1 K/mm3 (0-0.3) Baso # (Auto) 0.1 K/mm3 (0.0-0.1) Abs Immat Gran (auto) 0.24 H K/mm3 (0.00-0.031) Absolute Neuts (auto) 8.3 H K/mm3 (1.3-6.7) Absolute Nucleated RBC 0.0 K/mm3 (0.0-0.012) Nucleated RBC % 0.0 % (0.0-0.2) RPR Non-reactive (NonReactive) Blood Type O Positive Antibody Screen Negative Patient hx anesthesia problems: none Family hx anesthesia problems: none Results Review: All pre-operative results and documents have been reviewed as part of the pre-operative evaluation. [facility] Past Medical History Medical History No pertinent past medical history Surgical History Surgical History No pertinent past surgical history Family History Family History Father Lymphoma Grandparent Lung cancer Colon cancer Grandparent Leukemia Grandparent Heart disease Social History Social History Smoking status: Never smoker Substance use: never Lack of Transportation: No Lack of Food: Never True Current Housing: I Have Housing Concerned About Future Housing: No Difficulty Paying Gas/Electric Bills: No Difficulty Paying for Meds: No Currently Unemployed: No Education: Bachelor's Degree Difficulty w/ Childcare or Family Care: No Gender identity (if verbalized by the patient): Female Spiritual care concerns: No Anes - Eval Final PreProcedure Day of Procedure 10/02/22 12:25 Patient weight: overweight Heart: regular rate and rhythm Lungs: clear to auscultation Neurological: alert and oriented ASA classification: II Emergent: no Anesthetic plan: proceed Anesthesia type and monitoring: regional epidural and standard monitoring Results Review: All pre-operative results and documents have been reviewed as part of the pre-operative evaluation. Informed Consent: The patient's anesthetic plan and its attendant risks and benefits were discussed with the patient/family/POA. Questions were solicited and answers provided to the satisfaction of the patient/family/POA.
--- NOTE | 2022-10-02 19:21 | PM.OBPRVD ---
OB - Delivery Note Procedure Delivery date: 10/02/22 Procedure: Induction method: AROM and Per Pitocin Protocol Delivery monitor: External FHT and Internal Uterine Route of delivery: Laceration Description: Perineal - 2nd Degree (extending to inner bilateral labia majora) Delivery repair: vicryl (3-0) Specimen: No Quantitative Blood Loss (ml): 250 Anesthesia type: Epidural Disposition: Floor Baby Date of : 10/02/22 Weeks of gestation at delivery: 39 gender: Female Weight (pounds): 6 Weight (ounces): 2 presentation: vertex position: Right Occiput Anterior Placenta delivery description: Spontaneous Cord Vessel Description: 3 Vessels, Delayed Cord Clamping and Around Body score one minute: 8 score five minutes: 9
--- NOTE | 2022-10-02 19:22 | PM.OBDSVD ---
DS: Admitting Diagnosis Discharge Date 10/04/22 Admitting Diagnosis IUP 39 wks for RUSSELL DS: Discharge Diagnosis Discharge Diagnosis (1) (normal spontaneous vaginal delivery): Code(s): O80 - Encounter for full-term uncomplicated delivery Status: Acute OB - DS: Summary OB Procedures : Ultrasound OB Procedures Intrapartum: Spontaneous Vag Delivery OB Procedures: : None Peripartum Data Delivery Method: Natural Vaginal Laceration Description: Perineal - 2nd Degree (with extension to inner B labia) complications: none Status at Discharge Functional status at discharge: independent ambulation Overall status at discharge: patient is progressing back to baseline Time Spent with Patient Time attestation: Total time spent providing and/or coordinating discharge services: DS: Data Data Completed and Pending Labs on day of discharge: Labs from last 24 hours 10/02/22 05:38 WBC 11.7 H RBC 3.58 L Hgb 10.9 L Hct 32.3 L MCV 90.2 MCH 30.4 MCHC 33.7 RDW 13.0 Plt Count 179 MPV 11.6 H Immature Gran % (Auto) 2.0 H Neut % (Auto) 71.2 Lymph % (Auto) 20.2 [place] % (Auto) 5.1 Eos % (Auto) 1.1 Baso % (Auto) 0.4 Lymph # (Auto) 2.36 [place] # (Auto) 0.6 Eos # (Auto) 0.1 Baso # (Auto) 0.1 Abs Immat Gran (auto) 0.24 H Absolute Neuts (auto) 8.3 H Absolute Nucleated RBC 0.0 Nucleated RBC % 0.0 RPR Non-reactive Blood Type O Positive Antibody Screen Negative Discharge Plan Discharge Attending physician on discharge: Alysa Vargas Discharging Clinician: Alysa Vargas Anticipated Discharge Date/Time: 10/04/22 19:23 Patient Disposition: Home, Self-Care Activity: may shower and pelvic rest Diet: regular Patient Instructions: Antibiotic Form Stand Alone Forms: General Discharge Information Follow-up/Referrals: Alysa Vargas MD [Physician] - 6 Weeks Discharge Medications: Continued ferrous sulfate 325 mg (65 mg iron) Tablet 325 mg PO DAILY #2 Tablet 1 tablet cholecalciferol (vitamin D3) 1,250 mcg (50,000 unit) Tablet 1,250 mcg PO WEEKLY Date of admission: 10/02/22 04:54 Primary Care Provider: PHYSICIAN,CONCRETE PIPE MACHINE OPERATOR Admitting Provider: Alysa Vargas Attending physician on admission: Alysa Vargas Condition: Stable Care Plan Goals: Plans OC's for control but does not recall brand. Will call office and get called out to start week 3.
[2022-10-02] MEDS: OXYTOCIN 30 UNITS/NS 500 ML 30 UNITS/500 ML BAG 125 UNITS IV CONT (19:27)
[2022-10-02] MEDS: IBUPROFEN 600 MG TABLET PO (21:39)
--- NOTE | 2022-10-02 22:32 | OBPPTRN ---
Patient transferred to post room #282 via wheelchair. Support person present. Oriented to unit, room, information board, rooming in, admission packet and security measures. Patient verbalizes understanding.
[2022-10-02] MEDS: ACETAMINOPHEN 325 MG TABLET 650 MG PO (22:48)
[2022-10-02] MEDS: WITCH HAZEL 40 PADS 1 PAD TOPICAL (22:59)
[2022-10-02] MEDS: BENZOCAINE 20% AER SPR (*SP) 56 GM CAN 1 SPRAY TOPICAL (22:59)
[2022-10-03 00:25] VITALS: TEMP 36.9
[2022-10-03 04:30] VITALS: BP 105/66; PULSE 65; RESP 16; TEMP 36.8; O2SAT 100
[2022-10-03] MEDS: IBUPROFEN 600 MG TABLET PO ×3 (07:15→23:36)
[2022-10-03] MEDS: MULTIVIT/MIN/PREN/FOL AC/IRON TABLET 1 TAB PO (07:15)
[2022-10-03] MEDS: WITCH HAZEL 40 PADS 1 PAD TOPICAL (07:15)
--- NOTE | 2022-10-03 07:32 | PM.OBPNVD ---
OB - PN: Subj Subjective Date/time seen: 10/03/22 07:32 Patient comments: no complaints and pain well controlled baby status: doing well OB - PN: Obj Data Labs 10/02/22 05:38 Labs: Laboratory Results - last 24 hr 10/02/22 05:38 RPR Non-reactive OB - PN A/P Plan day: 1 Plan: routine care Time Spent With Patient Time: Total time spent is greater than 50% in coordination of care (as documented) at patient's floor/unit and/or counseling patient: Exam : Bimanual exam- vagina & uterus: other (Uterus firm, nt @U)
[2022-10-03 08:49] LABS: Hematocrit 30.1 % (37.0-47.0)
[2022-10-03 10:29] VITALS: BP 109/69; PULSE 64; RESP 16; TEMP 36.8; O2SAT 100
[2022-10-03] MEDS: ACETAMINOPHEN 325 MG TABLET 650 MG PO ×2 (11:10→20:30)
--- NOTE | 2022-10-03 14:23 | WPDANLDPN2 ---
Anes-Prog Note L&D Date/Time: 10/03/22 14:23 Neuro status: Neuro function grossly intact. Vital Signs: Last Vital Signs Temp 36.8 C 10/03/22 10:29 Pulse 64 10/03/22 10:29 Resp 16 10/03/22 10:29 BP 109/69 10/03/22 10:29 Pulse Ox 100 10/03/22 10:29 O2 Del Method Room Air 10/02/22 23:00 Pain score (VAS): 0 I/O: Intake & Output 10/02/22 10/03/22 10/03/22 23:59 07:59 15:59 Intake Total 250 Output Total 340 Balance -340 250 Patient feedback: Patient satisfied with anesthetic care.
[2022-10-03 17:30] VITALS: BP 112/64; PULSE 70; RESP 16; TEMP 36.4; O2SAT 100
--- NOTE | 2022-10-03 19:36 | PC.NURSE ---
Patient viewed the discharge video Mother & Baby Care, The First Two Weeks . Patient was given the opportunity and encouraged to ask questions. Patient verbalized understanding of information shared and has been given the mother/baby guide for home reference.
[2022-10-03 19:50] VITALS: BP 121/82; PULSE 83; RESP 16; TEMP 36.2
[2022-10-04] MEDS: IBUPROFEN 600 MG TABLET PO (05:41)
--- NOTE | 2022-10-04 06:01 | PM.OBPNVD ---
OB - PN: Subj Subjective Date/time seen: 10/04/22 06:01 Patient comments: no complaints and pain well controlled baby status: doing well and bottle feeding well OB - PN: Obj Data Labs 10/03/22 05:00 Labs: Laboratory Results - last 24 hr 10/03/22 05:00 Hgb 10.0 L Hct 30.1 L OB - PN A/P Plan day: 2 Plan: routine care, discharge home and follow up 6 weeks Time Spent With Patient Time: Total time spent is greater than 50% in coordination of care (as documented) at patient's floor/unit and/or counseling patient: Exam : Bimanual exam- vagina & uterus: other (Uterus firm, nt @U)
[2022-10-04 07:40] VITALS: BP 94/53; PULSE 72; RESP 18; TEMP 36.9
[2022-10-04] MEDS: MULTIVIT/MIN/PREN/FOL AC/IRON TABLET 1 TAB PO (09:52)
[2022-10-06 10:06] VITALS: BP 114/49; PULSE 83; RESP 18; TEMP 37.1; O2SAT 100
== END 2022-10-04 11:02 | disposition home or self-care (01) | DRG 807 ==
LOC: ANHLDR 19:24 → ANHOB2 23:09
PROVIDERS: Admitting Provider Obstetrics & Gynecology Gynecology; Visit Provider Obstetrics & Gynecology Gynecology
DX: O99.824 Streptococcus B carrier state complicating childbirth (principal); Z37.0 Single live birth; Z3A.39 39 weeks gestation of pregnancy; O70.1 Second degree perineal laceration during delivery; O69.82X0 Labor and delivery complicated by other cord entanglement, without compression, not applicable or unspecified
CPT/HCPCS: 36415; 85014; 85018; 85025; 86592; 86850; 86900; 86901; A9270; J0290; J2405; J2590; J2795; J7120

== ENCOUNTER → 2022-11-14 10:46 | Outpatient (CLI) | payer OTHER, SELFPAY ==
--- NOTE | ~2022-11-14 | US_ITS ---
EXAMINATION: US pelvic complete DATE: 11/14/2022 11:12 INDICATION: Left ovarian cyst follow-up TECHNIQUE: Multiple transabdominal and endovaginal sonographic images of the pelvis were obtained. COMPARISON: 03/03/2022 FINDINGS: The uterus measures 8.9 x 4.5 x 6.0 cm. The endometrial complex measures 6 mm. The right ov rafael measures 2.3 x 1.4 x 2.0 cm. The left ovary measures 2.3 x 1.2 x 1.3 cm. There is a 7.1 x 4.8 x 5 .4 cm cystic lesion of the left adnexa, stable to slightly decreased in size since the comparison exa mination. A peripheral echogenic focus is seen, possibly calcification. A smaller 1.7 x 0.7 x 0.7 cm cystic lesion is noted in the left adnexa. There is normal vascular flow in the ovaries. There is no free fluid in the pelvis. IMPRESSION: 1. Left adnexal cysts without significant change. Follow-up pelvic ultrasound six months is recommend ed Reviewed, dictated and finalized at location B. IMPRESSION: 1. Left adnexal cysts without significant change. Follow-up pelvic ultrasound s ix months is recommended
== END ==
PROVIDERS: PCP Obstetrics & Gynecology Gynecology; Visit Provider Obstetrics & Gynecology Gynecology
DX: N83.202 Unspecified ovarian cyst, left side (principal)
CPT/HCPCS: 76856

== ENCOUNTER 2023-05-21 08:14 | Outpatient (CLI) | payer OTHER, SELFPAY ==
--- NOTE | ~2023-05-21 | US_ITS ---
EXAMINATION: US pelvic complete DATE: 05/21/2023 INDICATION: Left ovarian cyst followup TECHNIQUE: Multiple transabdominal sonographic images of the pelvis were obtained. COMPARISON: 11/14/2022 FINDINGS: The uterus measures 9.0 x 3.4 x 5.4 cm. The endometrial complex measures 5 mm. The right ov rafael measures 3.3 x 2.2 x 3.2 cm. The left ovary measures 2.3 x 1.7 x 2.2 cm. There is an approximatel y 5.9 x 4.4 x 5.4 cm cystic lesion of the left adnexa. A peripheral echogenic focus is again noted. T here is normal vascular flow in the ovaries. There is no free fluid in the pelvis. IMPRESSION: 1. Essentially stable cystic lesion of the left adnexa. Follow-up ultrasound in six months is recomme nded. Reviewed, dictated and finalized at location L. NG RUNNER IMPRESSION: 1. Essentially stable cystic lesion of the left adnexa. Follow-up ultrasound in six months is recommended.
== END 2023-05-21 08:15 ==
LOC: MICIMG 08:15
PROVIDERS: PCP Nurse Practitioner; Visit Provider Nurse Practitioner
DX: N83.202 Unspecified ovarian cyst, left side (principal)
CPT/HCPCS: 76856

== ENCOUNTER 2024-03-24 09:42 | Outpatient (CLI) | payer OTHER, SELFPAY ==
--- NOTE | ~2024-03-24 | US_ITS ---
Is EXAM: PELVIC ULTRASOUND HISTORY: left ovarian cyst COMPARISON: 05/21/2023 and 11/14/2022. Reference is also made to the CT examination of the abdomen and pelvis dated 07/07/2019. FINDINGS: UTERUS: 9.3 x 4.1 x 5.0 cm. The uterus is anteverted and anteflexed. The endometrial complex measures 4 mm. RIGHT OVARY: The right ovary is unremarkable in echogenicity and size measuring 2.7 x 2.4 x 2.4 cm. Arterial and venous flow are identified. Multiple follicles are present. LEFT OVARY: The left ovary is unremarkable in echogenicity and size measuring 3.8 x 2.6 x 2.8 cm Both arterial and venous flow are identified. Multiple follicles are present. Within the rectouterine pouch (the pouch of Wesley) there is redemonstration of a well-circumscribed focus of fluid attenuation. This focus was present on CT examination dated 07/07/2019 when it measured 4.7 x 7.1 x 5.4 cm (anterio r to posterior x medial to lateral x cranial to caudal dimension). The cystic structure has minimally increased in size, now measuring 5.1 x 7.0 x 9.5 cm (as measured s onographically). No free fluid is identified within the pelvis. IMPRESSION: Redemonstration of a complex cyst within the rectouterine pouch which waxes and wanes in size, as det gabino above, when compared with original study dated 07/07/2019. Please correlate these findings with the patient's menstrual cycle for which histologic evaluation may be performed. Reviewed, dictated and finalized at location A. SSIONER IMPRESSION: Redemonstration of a complex cyst within the rectouterine pouch which waxes and wanes in size, as detailed above, when compared with original study dated 07/06. Please correlate these findings with the patient's menstrual cycle for w [facility] histologic evaluation may be performed.
== END 2024-03-24 09:43 | disposition home or self-care (01) ==
PROVIDERS: PCP Nurse Practitioner; Visit Provider Nurse Practitioner
DX: N83.299 Other ovarian cyst, unspecified side (principal); N83.202 Unspecified ovarian cyst, left side
CPT/HCPCS: 76856